=== PATIENT | female | born 1950 | race Caucasian/White ===

== ENCOUNTER 2019-06-16 16:37 | Emergency (ER) | payer MEDICARE ==
[~2019-06-16] VITALS: Ht 154.9 cm; Wt 64.0 kg
[2019-06-16 16:40] VITALS: BP_SYST 167
--- NOTE | 2019-06-16 16:44 | NUR ---
Patient to ER bed H1 for evaluation. Side rails up.
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
[2019-06-16] MEDS ORDERED: IBUPROFEN 600 MG TABLET PO ONE (16:45)
[2019-06-16] MEDS ORDERED: LORazepam 1 MG TABLET PO ONE (16:45)
--- NOTE | 2019-06-16 16:47 | NUR ---
GREG Michael at bedside examining patient.
--- NOTE | 2019-06-16 17:20 | NUR ---
Pt assisted with ambulation to bathroom.
[2019-06-16 18:12] VITALS: BP_SYST 152
--- NOTE | 2019-06-16 18:12 | NUR ---
Patient given written and verbal discharge instructions and verbalizes understanding. ER MD Michael discussed with patient the results and treatment provided. Patient in stable condition. ID arm band removed. Rx of Naproxen given. Patient educated on pain management and to follow up with PMD. Pain Scale 0. Opportunity for questions provided and answered. Medication side effect fact sheet provided.
== END 2019-06-16 18:12 | disposition home or self-care (01) ==
LOC: SED 16:37
DX: S40.012A Contusion of left shoulder, initial encounter (principal); M25.551 Pain in right hip; Z88.5 Allergy status to narcotic agent; V43.52XA Car driver injured in collision with other type car in traffic accident, initial encounter; Y93.89 Activity, other specified; Y92.89 Other specified places as the place of occurrence of the external cause; Y99.8 Other external cause status
CPT/HCPCS: 73030; 99283